=== PATIENT | male | born 2000 | race Caucasian/White ===

== ENCOUNTER 2023-08-03 00:29 | Emergency (ER) | payer BC ==
[2023-08-03 01:15] VITALS: BP 162/100; TEMP 97.8
--- NOTE | 2023-08-03 01:17 | ED ---
General Adult HPI - General Chief complaint: Recheck/Abnormal Lab/Rx Stated complaint: tremors Time Seen by Provider: 08/03/23 00:44 Source: patient Mode of arrival: ambulatory Limitations: no limitations - History of Present Illness Initial comments: Dictation was produced using [employer] dictation software. please excuse any grammatical, word or spelling errors. Chief Complaint: 22-year-old male presents with reported side effects from hydroxyzine History of Present Illness: Patient 22-year-old male prescribed hydroxyzine recently by primary care doctor for treatment of anxiety. Patient states that initially was working however today he was playing videogames and started to feel tremors. He is concerned that he is having a reaction to the medications. Patient states that his symptoms mostly resolved. Denies any complaints at the bedside. The ROS documented in this emergency department record has been reviewed and confirmed by me. Those systems with pertinent positive or negative responses have been documented in the HPI. All other systems are other negative and/or noncontributory. - Related Data Allergies Allergy/AdvReac Type Severity Reaction Status Date / Time No Known Allergies Allergy Verified 08/03/23 00:36 Review of Systems ROS Statement: Those systems with pertinent positive or pertinent negative responses have been documented in the HPI. ROS Other: All systems not noted in ROS Statement are negative. Past Medical History Past Medical History: No Reported History History of Any Multi-Drug Resistant Organisms: None Reported Past Surgical History: Tonsillectomy Past Psychological History: Anxiety Smoking Status: Vaper Past Alcohol Use History: Occasional Past Drug Use History: None Reported General Exam - General Exam Comments Initial Comments: General: Well-appearing, nontoxic, no acute distress. Head: Normocephalic, atraumatic Eyes: PERRLA, EOMI ENT: Airway patent Chest: Nonlabored breathing Skin: No visual rash, normal skin tone Neuro: Alert and oriented 3 Musculoskeletal: No gross abnormalities Limitations: no limitations Course Vital Signs 08/03/23 00:31 Temperature 97.8 F Pulse Rate 71 Respiratory 20 Rate Blood Pressure 162/100 O2 Sat by Pulse 98 Oximetry Medical Decision Making - Medical Decision Making Was pt. sent in by a medical professional or institution (, PA, TESTER/LIFT TRUCKER, urgent care, hospital, or halfway...) When possible be specific @ -[No] Did you speak to anyone other than the patient for history (EMS, parent, family, police, friend...)? What history was obtained from this source @ -[No] Did you review nursing and triage notes (agree or disagree)? Why? @ -[I reviewed and agree with nursing and triage notes] Were old charts reviewed (outside hosp., previous admission, EMS record, old EKG, old radiological studies, urgent care reports/EKG's, halfway records)? Report findings @ -[No old charts were reviewed] Differential Diagnosis (chest pain, altered mental status, abdominal pain women, abdominal pain men, vaginal bleeding, musculoskeletal, weakness, fever, dyspnea, syncope, headache, dizziness, GI bleed, back pain, seizure, CVA, palpatations, mental health)? @ -[not applicable] EKG interpreted by me (3pts min.). @ -[None done] X-rays interpreted by me (1pt min.). @ -[None done] CT interpreted by me (1pt min.). @ -[None done] U/S interpreted by me (1pt. min.). @ -[None done] What testing was considered but not performed or refused? (CT, X-rays, U/S, labs)? Why? @ -[None] What meds were considered but not given or refused? Why? @ -[None] Did you discuss the management of the patient with other professionals (professionals i.e. , PA, TESTER/LIFT TRUCKER, lab, RT, psych nurse, nephrology social worker, manager child, teacher, plant protection officer, correctional counselor/case manager)? Give summary @ -[No] Was smoking cessation discussed for >3mins.? @ -[No] Was critical care preformed (if so, how long)? @ -[No] Were there social determinants of health that impacted care today? How? (Homelessness, low income, unemployed, alcoholism, drug addiction, transportation, low edu. Level, literacy, decrease access to med. care, prison, rehab)? @ -[No] Was there de-escalation of care discussed even if they declined (Discuss DNR or withdrawal of care, Hospice)? DNR status @ -No What co-morbidities impacted this encounter? (DM, HTN, Smoking, COPD, CAD, Cancer, CVA, ARF, Chemo, Hep., AIDS, mental health diagnosis, sleep apnea, morbid obesity)? @ -None Was patient admitted / discharged? Hospital course, mention meds given and route, prescriptions, significant lab abnormalities, going to OR and other pertinent info. @ -22-year-old well-appearing male presents emergency department for tremors. Vital signs stable. Patient well-appearing at the bedside. Patient in no acute distress not entirely clear if patient having side effect to hydroxyzine versus tremor from other issue. Nonetheless patient is well-appearing he has no high risk features. Patient would like to try Xanax. Patient given a anxiolytic medication discharged advised follow-up with primary care doctor. Undiagnosed new problem with uncertain prognosis? @ -No Drug Therapy requiring intensive monitoring for toxicity (Heparin, Nitro, Insulin, Cardizem)? @ -No Were any procedures done? @ -No Diagnosis/symptom? Acute, or Chronic, or Acute on Chronic? Uncomplicated (without systemic symptoms) or Complicated (systemic symptoms)? @ -Tremors, no obvious source, no high risk features Side effects of treatment? @ -No Exacerbation, Progression, or Severe Exacerbation? @ -No Poses a threat to life or bodily function? How? (Chest pain, [place], [place], pneumonia, PE, COPD, DKA, ARF, appy, cholecystitis, CVA, Diverticulitis, Homicidal, Suicidal, threat to staff... and all critical care pts) @ -No Disposition Clinical Impression: Tremor Disposition: HOME SELF-CARE Condition: Good Instructions (If sedation given, give patient instructions): Hydroxyzine (By mouth) Is patient prescribed a controlled substance at d/c from ED?: No Referrals: Tyler Sandhu MD [Primary Care Provider] - 1-2 days Time of Disposition: 01:17
[2023-08-03] MEDS: ALPRAZolam 0.25 MG TAB PO STA (01:29)
[2023-08-03 02:12] VITALS: PULSE 81; RESP 18
== END 2023-08-03 01:41 | disposition home or self-care (01) ==
LOC: EC 00:29
DX: R25.1 Tremor, unspecified (principal); F17.290 Nicotine dependence, other tobacco product, uncomplicated
CPT/HCPCS: 99284

== ENCOUNTER 2023-11-22 11:14 | Observation (INO) | payer BC ==
--- NOTE | 2023-11-22 12:45 | ED ---
General Adult HPI - General Chief complaint: Dizziness Stated complaint: Dental post-op issue Time Seen by Provider: 11/22/23 11:40 Source: patient Mode of arrival: ambulatory Limitations: no limitations - History of Present Illness Initial comments: Dictation was produced using [employer] dictation software. please excuse any grammatical, word or spelling errors. Chief Complaint: 23-year-old male presents to the emergency department with weakness. History of Present Illness: Patient 23-year-old male he had recent dental extraction of all of his upper teeth yesterday. Patient was in the waiting room because he has been feeling weak. And in the waiting room patient had an episode where he passed out. Mother at the bedside states that patient looks like he had a seizure. He had a fever seizure when he was younger. According to the nurse who saw the event he woke up immediately The ROS documented in this emergency department record has been reviewed and confirmed by me. Those systems with pertinent positive or negative responses have been documented in the HPI. All other systems are other negative and/or noncontributory. - Related Data Allergies Allergy/AdvReac Type Severity Reaction Status Date / Time No Known Allergies Allergy Verified 11/22/23 11:39 Review of Systems ROS Statement: Those systems with pertinent positive or pertinent negative responses have been documented in the HPI. ROS Other: All systems not noted in ROS Statement are negative. Past Medical History Past Medical History: No Reported History History of Any Multi-Drug Resistant Organisms: None Reported Past Surgical History: Tonsillectomy Additional Past Surgical History / Comment(s): dental Past Psychological History: Anxiety Smoking Status: Vaper Past Alcohol Use History: Occasional Past Drug Use History: None Reported General Exam - General Exam Comments Initial Comments: PHYSICAL EXAM: General Impression: Alert and oriented x3, not in acute distress, malaised, pale HEENT: Normocephalic atraumatic, extra-ocular movements intact, pupils equal and reactive to light bilaterally, mucous membranes moist. Cardiovascular: Heart regular rate and rhythm Chest: Able to complete full sentences, no retractions, no tachypnea Abdomen: abdomen soft, non-tender, non-distended, no organomegaly Musculoskeletal: Pulses present and equal in all extremities, no peripheral edema Motor: no focal deficits noted Neurological: CN II-XII grossly intact, no focal motor or sensory deficits noted Skin: Intact with no visualized rashes Psych: Normal affect and mood Limitations: no limitations Course Vital Signs 11/22/23 11/22/23 11/22/23 11:36 12:00 14:00 Temperature 98 F Pulse Rate 105 H 101 H 97 Respiratory 18 16 18 Rate Blood Pressure 90/62 129/40 109/73 O2 Sat by Pulse 100 100 100 Oximetry EKG Findings - EKG Comments: EKG Findings:: My EKG interpretation: Ventricular rate 107, sinus tachycardia,. 104, QRS 84, QTc 361. No MO prolongation, no QTC prolongation, no ST or T-wave changes noted. Overall, this EKG is unremarkable Medical Decision Making - Medical Decision Making Was pt. sent in by a medical professional or institution (SHAUNA Moeller, ROOFING SUBCONTRACTOR, urgent care, hospital, or mcc...) When possible be specific @ -Was pt. sent in by a medical professional or institution (SHAUNA Moeller, ROOFING SUBCONTRACTOR, urgent care, hospital, or mcc...) When possible be specific @ -No Did you speak to anyone other than the patient for history (EMS, parent, family, police, friend...)? What history was obtained from this source @ -Some history obtained from mother at the bedside states that patient has history of pediatric febrile seizure Did you review nursing and triage notes (agree or disagree)? Why? @ -I reviewed and agree with nursing and triage notes Were old charts reviewed (outside hosp., previous admission, EMS record, old EKG, old radiological studies, urgent care reports/EKG's, mcc records)? Report findings @ -No old charts were reviewed Differential Diagnosis (chest pain, altered mental status, abdominal pain women, abdominal pain men, vaginal bleeding, musculoskeletal, weakness, fever, dyspnea, syncope, headache, dizziness, GI bleed, back pain, seizure, CVA, palpatations, mental health)? @ -Differential Seizure: Recurrent seizure disorder, febrile seizure, alcohol withdrawal, stimulants, meningitis, encephalitis, intercranial hemorrhage, intracranial tumor, stroke, eclampsia, thyrotoxicosis, hypocalcemia, hyponatremia, hypernatremia, hypomagnesemia, psychogenic, this is not meant to be an all-inclusive list. EKG interpreted by me (3pts min.). @ -See above X-rays interpreted by me (1pt min.). @ -None done CT interpreted by me (1pt min.). @ -CT scan of the brain shows no acute processes. U/S interpreted by me (1pt. min.). @ -None done What testing was considered but not performed or refused? (CT, X-rays, U/S, labs)? Why? @ -None What meds were considered but not given or refused? Why? @ -None Was smoking cessation discussed for >3mins.? @ -No Were there social determinants of health that impacted care today? How? (Homelessness, low income, unemployed, alcoholism, drug addiction, transportation, low edu. Level, literacy, decrease access to med. care, nursing home, rehab)? @ -No Was there de-escalation of care discussed even if they declined (Discuss DNR or withdrawal of care, Hospice)? DNR status @ -No What co-morbidities impacted this encounter? (DM, HTN, Smoking, COPD, CAD, Cancer, CVA, ARF, Chemo, Hep., AIDS, mental health diagnosis, sleep apnea, morbid obesity)? @ -None Was patient admitted / discharged? Hospital course, mention meds given and route, prescriptions, significant lab abnormalities, going to OR and other pertinent info. @ -23-year-old male presents emergency department for syncope versus seizure. Vital signs upon arrival a shows tachycardia 105 with blood pressure of 90/62. Repeat vital signs shows heart rate of 101 with a blood pressure 120/40. Nurse and triage witnessed the event states that he more or less syncopized as opposed to seizure. He did seem a little malaised upon initial arrival. Mother states that she reviewed the event as a seizure. Patient does have a history of pediatric febrile seizure. Laboratory evaluation obtained. Leukocytosis 22.6, lactic acidosis 2.5. Given patient's clinical presentation he will be admitted observation consultation to neurology. Did you discuss the management of the patient with other professionals (professionals i.e. , PA, ROOFING SUBCONTRACTOR, lab, RT, psych nurse, social media intern, manager filter, teacher, special weapons unit officer, case mgr)? Give summary @ -Case discussed with hospitalist for admission Was critical care preformed (if so, how long)? @ -No Undiagnosed new problem with uncertain prognosis? @ -No Drug Therapy requiring intensive monitoring for toxicity (Heparin, Nitro, Insulin, Cardizem)? @ -No Were any procedures done? @ -No Diagnosis/symptom? Acute, or Chronic, or Acute on Chronic? Uncomplicated (without systemic symptoms) or Complicated (systemic symptoms)? @ -Syncope over seizure Side effects of treatment? @ -No Exacerbation, Progression, or Severe Exacerbation? @ -No Poses a threat to life or bodily function? How? (Chest pain, [place], [place], pneumonia, PE, COPD, DKA, ARF, appy, cholecystitis, CVA, Diverticulitis, Homicidal, Suicidal, threat to staff... and all critical care pts) @ -No - Lab Data Result diagrams: 11/22/23 12:42 11/22/23 12:42 Lab Results 11/22/23 11/22/23 11/22/23 Range/Units 12:42 12:42 13:03 WBC 22.6 H (3.8-10.6) k/uL RBC 4.53 (4.30-5.90) m/uL Hgb 13.6 (13.0-17.5) gm/dL Hct 40.3 (39.0-53.0) % MCV 89.1 (80.0-100.0) fL MCH 30.1 (25.0-35.0) pg MCHC 33.8 (31.0-37.0) g/dL RDW 12.7 (11.5-15.5) % Plt Count 433 (150-450) k/uL MPV 8.1 Neutrophils % 85 % Lymphocytes % 7 % Monocytes % 7 % Eosinophils % 0 % Basophils % 0 % Neutrophils # 19.3 H (1.3-7.7) k/uL Lymphocytes # 1.6 (1.0-4.8) k/uL Monocytes # 1.5 H (0-1.0) k/uL Eosinophils # 0.0 (0-0.7) k/uL Basophils # 0.0 (0-0.2) k/uL Sodium 135 L (137-145) mmol/L Potassium 4.3 (3.5-5.1) mmol/L Chloride 103 (98-107) mmol/L Carbon Dioxide 21 L (22-30) mmol/L Anion Gap 11 mmol/L BUN 33 H (9-20) mg/dL Creatinine 0.85 (0.66-1.25) mg/dL Est GFR (CKD-EPI)AfAm >90 (>60 ml/min/1.73 sqM) Est GFR (CKD-EPI)NonAf >90 (>60 ml/min/1.73 sqM) Glucose 109 H (74-99) mg/dL Plasma Lactic Acid Froylan 2.5 H* (0.7-2.0) mmol/L Calcium 9.1 (8.4-10.2) mg/dL Magnesium 1.9 (1.6-2.3) mg/dL Disposition Clinical Impression: Syncope Disposition: ADMITTED IP TO THIS HOSP Condition: Fair Referrals: Tyler Sandhu MD [Primary Care Provider] - 1-2 days Decision Time: 14:45
[2023-11-22 12:51] LABS: Basophils % (A) 0 %; Eosinophils % (A) 0 %; HCT 40.3 % (39.0-53.0); HGB 13.6 gm/dL (13.0-17.5); Lymphocytes # (A) 1.6 k/uL (1.0-4.8); Lymphocytes % (A) 7 %; MCH 30.1 pg (25.0-35.0); MCHC 33.8 g/dL (31.0-37.0); MCV 89.1 fL (80.0-100.0); Mean Platelet Volume 8.1; Monocytes # (A) 1.5 k/uL (0-1.0); Monocytes % (A) 7 %; Neutrophils # (A) 19.3 k/uL (1.3-7.7); Neutrophils % (A) 85 %; Platelet Count 433 k/uL (150-450); RBC 4.53 m/uL (4.30-5.90); RDW 12.7 % (11.5-15.5); WBC 22.6 k/uL (3.8-10.6)
[2023-11-22 13:03] LABS: African American GFR (CKD) >90 (>60 ml/min/1.73 sqM); Anion Gap 11 mmol/L; Blood Urea Nitrogen 33 mg/dL (9-20); Calcium 9.1 mg/dL (8.4-10.2); Carbon Dioxide 21 mmol/L (22-30); Chloride 103 mmol/L (98-107); Glucose 109 mg/dL (74-99); Magnesium 1.9 mg/dL (1.6-2.3); Non-African American GFR(CKD) >90 (>60 ml/min/1.73 sqM); Potassium 4.3 mmol/L (3.5-5.1); Sodium 135 mmol/L (137-145)
--- NOTE | 2023-11-22 13:05 | CT ---
EXAMINATION TYPE: CT brain wo con CT DLP: 1138.4 mGycm, Automated exposure control for dose reduction was used. DATE OF EXAM: 11/22/2023 12:54 PM COMPARISON: None. CLINICAL INDICATION: Male, 23 years old with history of seizure, AMS TECHNIQUE: Brain: Axial CT images of the brain were obtained with coronal and sagittal reformats created and rev iewed. Contrast used: None. Oral contrast used: None. FINDINGS: Brain: Extra-axial spaces: No abnormal extra-axial fluid collections. Ventricular system: Within normal limits Cerebral parenchyma: No acute intraparenchymal hemorrhage or mass effect. The decker-white junction is well differentiated. Cerebellum: Unremarkable. Mass effect: No evidence of midline shift. Intracranial vasculature: unremarkable Soft tissues: Normal. Calvarium/osseous structures: No depressed skull fracture. Paranasal sinuses and mastoid air cells: Mild scattered paranasal sinus disease. Visualized orbits: Orbital contents are intact. IMPRESSION: No acute intracranial process.
[2023-11-22] MEDS ORDERED: NALOXONE 0.4 MG/ML 1 ML VIAL IV PRN (14:36)
[2023-11-22] MEDS: SODIUM CHLORIDE 0.9% 1,000 ML IV STA (14:47)
[2023-11-22] MEDS: SODIUM CHLORIDE 0.9% 1,000 ML IV SCH (16:12)
[2023-11-22 17:12] LABS: Glucose,Whole Blood 124 mg/dL (70-110)
--- NOTE | 2023-11-22 17:53 | P.CNNES ---
History of Present Illness Consult date: 11/22/23 Requesting physician: Brody Zhao Reason for Consult: syncope vs. seizure History of Present Illness: Patient is a 23-year-old right-handed male with history of anxiety disorder, PTSD, came to the hospital for possible seizure. Patient's mother was also present, and they provided with a history. Patient apparently underwent dental workup yesterday, with removal of whole of the upper dentition and partial teeth in the bottom jaw. Patient's mother states that he was not given any pain medication. At 3 PM she gave her own [place] 10/325 to him to help with the pain. Then he started taking Motrin [id number]. Patient then went to sleep. He woke her up at 2 AM as he was puking up blood. He then went back to sleep. At 9 AM he rolled off the couch, and hit the floor. He did not pass out. He went to bathroom, and wanted to take the shower. While in the bathroom, he passed out. Patient's mom went in, and he was sitting on the floor, bent over, nonresponsive. He did not bite his tongue. She had to call or write him to gain attention. She dressed him up and patient's mother and patient's [id number] helped him and brought to the ER. He arrived to the ER this morning at 11:14 AM. While in the ER, he was still throwing up some blood. Patient's mother states that he was sitting in the wheelchair in the waiting area, waiting to be seen for triage, when he called "mom". And then he had a seizure, his head deviated to the left and the seizure lasted for about 20 to 30 seconds. He did not bite his tongue, or lost control of urine. Patient admits that he did feel dizzy, lightheaded for about 10 seconds before he passed out. Vital signs arrival blood pressure 90/62, pulse rate 105, temperature 98.0. Blood test shows WBC 22.6, hemoglobin 13.6, platelets 433. Sodium 135 potassium 4.3, BUN 33 creatinine 0.85. Lactate 2.5. Calcium 9.1. Magnesium 1.9. EKG showed sinus tachycardia with short [place] interval. CT head revealed no acute intracranial process. I personally reviewed CT head, agree with the findings. Patient has history of PTSD and anxiety disorder. Patient's mother states that he had a febrile seizure at 18 months of age and the seizure lasted for about 4 minutes. He had pneumonia at that time. He was not treated with seizure medication. He never had any seizures subsequently. No family history of epilepsy. Patient does take Xanax 0.25 mg tablet, once every 10 to 15 days. He is not dependent on Xanax. Patient did take Wellbutrin in the past as per electronic records, but he stopped taking it 6 months ago. Patient denies tobacco use. He does use e-cigarette, occasionally drinks alcohol. No marijuana. No drug use. Review of Systems All systems: negative (As mentioned in HPI, all pertinent positive and negative. He does have dental pain from recent surgery. No chest pain, shortness of breath.) Past Medical History Past Medical History: No Reported History History of Any Multi-Drug Resistant Organisms: None Reported Past Surgical History: Tonsillectomy Additional Past Surgical History / Comment(s): dental Past Psychological History: Anxiety Smoking Status: Vaper Past Alcohol Use History: Occasional Past Drug Use History: None Reported Medications and Allergies Home Medications Medication Instructions Recorded Confirmed Type ALPRAZolam [Xanax] 0.25 mg PO DAILY PRN 11/22/23 11/22/23 History Fexofenadine HCl [Priti Allergy] 180 mg PO DAILY 11/22/23 11/22/23 History Lisdexamfetamine Dimesylate 20 mg PO DAILY 11/22/23 11/22/23 History [Vyvanse] PARoxetine [Paxil] 10 mg PO HS 11/22/23 11/22/23 History Allergies Allergy/AdvReac Type Severity Reaction Status Date / Time No Known Allergies Allergy Verified 11/22/23 15:05 Physical Examination - Vital Signs Vital Signs: Vital Signs Temp Pulse Resp BP Pulse Ox 11/22/23 16:00 92 18 103/71 100 11/22/23 14:00 97 18 109/73 100 11/22/23 12:00 101 H 16 129/40 100 11/22/23 11:36 98 F 105 H 18 90/62 100 Intake and Output 11/22/23 11/22/23 11/22/23 06:59 14:59 22:59 Other: Weight 81.647 kg Patient is a young male, who is slightly somnolent. Patient is in no acute distress. He did wake up on alerting. Patient is alert awake oriented to time place and person. He knows it is 11/22/2023, and that he is in [facility] in [place]. Speech and language functions are normal. Patient can name and repeat very well. No aphasia or dysarthria. Attention, concentration and fund of knowledge is adequate. On cranial nerve examination, pupils are equal, round and reacting to light, visual de la garza are full on confrontation, with no neglect on double simultaneous stimulation. Extraocular muscles are intact with no nystagmus. Face is symmetric, tongue protrudes to the midline. Palatal elevation and sensation normal, hearing and shoulder shrug normal, facial sensation normal. On muscle strength testing, there is no pronator drift and the strength is normal in arms and legs distally and proximally. Deep tendon reflexes are symmetric 1+ all over and plantars downgoing. Sensory to touch is equal with no neglect on double simultaneous stimulation. Cerebellar function showed no ataxia for [id number] testing. No dysdiadochokinesia. No ataxia for [id number] testing on either side. Tone and bulk of muscles normal. Gait deferred.. On general examination, there is no carotid bruit or murmur, S1-S2 audible. Chest is clear on consultation. Abdomen is soft nontender. No organomegaly, bowel sounds present. Peripheral pulses are present. No peripheral edema. Results - Laboratory Findings CBC and BMP: 11/22/23 12:42 11/22/23 12:42 Abnormal Lab Findings: Abnormal Labs 11/22/23 11/22/23 11/22/23 12:42 12:42 13:03 WBC 22.6 H Neutrophils # 19.3 H Monocytes # 1.5 H Sodium 135 L Carbon Dioxide 21 L BUN 33 H Glucose 109 H Plasma Lactic Acid Froylan 2.5 H* Assessment and Plan Assessment: * Probable convulsive vasovagal syncope. Rule out orthostasis from recent blood loss from dental surgery. Doubt seizure. * History of single febrile seizure at 18 months of age, when he had pneumonia. No seizure recurrence thereafter. * PTSD, anxiety disorder. * Status post dental extraction 11/21/2023. * Vapes Plan: * Patient probably had convulsive syncope. * Check orthostasis. * Hydration. * Low threshold for a seizure. However patient has history of a single febrile seizure in childhood. Therefore would recommend EEG, to rule out any seizure disorder. However EEG can be done as an outpatient. * Neurologically clear for discharge, when medically cleared. * Dr. Kameron Hernandez will be covering neurology service over the weekend, for any concerns. * Thank you for the consult. Addendum: Orthostatics are mildly positive. Supine blood pressure 119/70, sitting 113/77, standing 92/71. Pulse was 105, 127, 142 respectively. Recommendations as above.
[2023-11-23 15:05] VITALS: RESP 16; TEMP 98.2
[2023-11-23 16:31] VITALS: BP 116/67; PULSE 91
--- NOTE | 2023-11-24 00:19 | HP ---
HISTORY AND PHYSICAL CHIEF COMPLAINT: Syncope and possible seizure. HISTORY OF PRESENT ILLNESS: This is first known admission for this 23-year-old white male. He had upper teeth extracted and had some postoperative bleeding for significant amount of time. So he came to the emergency room. In the ER, he had a syncopal episode. It was not thought that this was a seizure, but it was considered. He had no loss of bladder control, tonic colonic movement, etc. He has never had seizures before and he has not had nor does he have now any neurologic signs or symptoms. REVIEW OF SYSTEMS: He is otherwise unremarkable. PAST MEDICAL HISTORY, FAMILY HISTORY, PERSONAL AND SOCIAL HISTORIES: All otherwise unremarkable and noncontributory. PHYSICAL EXAMINATION: VITAL SIGNS: Normal. HEENT: Head, ears, eyes, nose, mouth. and throat are normal. Pupils equal, round, reactive, and gaze is conjugate. NECK: Supple. CHEST: Clear. CARDIAC: Normal. No murmurs or extra sounds. ABDOMEN: Soft and nontender. EXTREMITIES: Normal. NEUROLOGIC: He is intact. DIAGNOSES: He is admitted to the hospital with diagnoses, 1. Syncopal episode. 2. Rule out seizure disorder. 3. Probable vasovagal reaction. 4. Probable hypovolemia. PLAN: 1. Bedrest. 2. Telemetry. 3. Frequent monitoring of his neurologic status and vital signs. MMODL / IJN: [id number] /
--- NOTE | 2023-11-24 01:19 | DS ---
DISCHARGE SUMMARY CHIEF COMPLAINT: Syncopal episode. HISTORY OF PRESENT ILLNESS AND PHYSICAL EXAMINATION: Details of this man's history and physical can be found in the initial workup. COURSE IN HOSPITAL: After admission, he was placed on bedrest, started on intravenous fluids and he was rehydrated. He had no signs or symptoms to suggest that he had a seizure. He is doing well and it was felt that he could go home on the and he will be followed up in the office in several days. FINAL DIAGNOSES: 1. Syncopal episode. 2. Hypovolemia. OPERATIONS: None. CONSULTATIONS: None, he is improved. MMODL / IJN: [id number] /
== END 2023-11-23 16:51 | disposition home or self-care (01) ==
LOC: EC 11:14 → 3SCARD 14:37
PROVIDERS: ADMIT Family Medicine; ATTEND Family Medicine
DX: R55 Syncope and collapse (principal); E86.1 Hypovolemia; F41.9 Anxiety disorder, unspecified; F43.10 Post-traumatic stress disorder, unspecified; F17.290 Nicotine dependence, other tobacco product, uncomplicated
CPT/HCPCS: 36415; 70450; 80048; 83605; 83735; 85025; 93005; 96360; 96361; 99285